=== PATIENT | female | born 2000 | race Caucasian/White ===

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

== ENCOUNTER 2019-05-28 18:12 | Emergency (ER) | payer MEDICAID ==
[~2019-05-28] VITALS: Ht 167.6 cm; Wt 66.2 kg
[2019-05-28 18:13] VITALS: BP 123/86
--- NOTE | 2019-05-28 18:24 | NUR ---
WAIT AT LOBBY
--- NOTE | 2019-05-28 18:41 | NUR ---
PT AMBULATED TO ER BED 10
--- NOTE | 2019-05-28 19:10 | NUR ---
19/F PRESENTED TO ED C/O FEVER , HEADACHE , BODY ACHE X 2 DAYS. PAIN 5/10 INTERMITENT. DENIES DYSURIA. DENIES N/V. REPORTS DIARRHEA. HYPERACTIVE BOWEL SOUNDS HEARD. ABD SOFT NON TENDER. CLEAR BILAT LUNG SOUNDS. EVEN UNLABORED BREATHING. ABLE TO MAKE NEEDS KNOWN. WILL CONTINUE TO MONITOR. BOYFRIEND AT BEDSIDE. MED HX: GAVE 05/18/19
[2019-05-28] MEDS ORDERED: IBUPROFEN 400 MG TAB PO ONE (19:15)
[2019-05-28] MEDS ORDERED: ACETAMINOPHEN 325 MG TAB PO ONE (19:15)
[2019-05-28 19:30] VITALS: BP 123/86
--- NOTE | 2019-05-28 19:30 | NUR ---
Patient discharged with v/s stable. Written and verbal after care instructions given and explained. Patient alert, oriented and verbalized understanding of instructions. Ambulatory with steady gait. All questions addressed prior to discharge. ID band removed. Patient advised to follow up with PMD. Rx of Motrin 400 mg and Tamiflu given. Patient educated on indication of medication including possible reaction and side effects. Opportunity to ask questions provided and answered.
== END 2019-05-28 19:30 | disposition home or self-care (01) ==
LOC: MED 18:12
DX: J11.1 Influenza due to unidentified influenza virus with other respiratory manifestations (principal)
CPT/HCPCS: 99283

== ENCOUNTER 2019-09-18 10:27 | Emergency (ER) | payer MEDICAID, OTHER ==
[~2019-09-18] VITALS: Ht 167.6 cm; Wt 64.9 kg
[2019-09-18 10:38] VITALS: BP 140/93
--- NOTE | 2019-09-18 10:48 | NUR ---
PT AMB W/O ASST TO ER BED 5
--- NOTE | 2019-09-18 10:53 | NUR ---
19 Y/O FEMALE C/O RT MIDDLE AND RING FINGER PAIN S/P CLOSING HAND IN CAR DOOR LAST NIGHT. 12/19 SHARP PAIN TO MIDDLE AND RING FINGER. +CMS, STATES INCREASED PAIN WITH MOVEMENT. BRUSING/DISCOLORATION NOTED TO FINGERS. MIDDLE FINGER NAIL DISCOLORED. STATES SHE HAS NOT TAKEN ANY MEDS TODAY. SKIN WARM, DRY TO THE TOUCH. SITTING UPRIGHT CALM AND PLEASANT. VSS. LMP 09/15/2019 MEDHX: DENIES ALLERGIES: NIDA
--- NOTE | 2019-09-18 10:55 | NUR ---
PT AMBULATED TO RESTROOM
--- NOTE | 2019-09-18 10:59 | NUR ---
RADIOLOGY AT BEDSIDE
--- NOTE | 2019-09-18 11:48 | NUR ---
DR BRUNSON AT BEDSIDE EXAMINING PT
[2019-09-18] MEDS ORDERED: ACETAMINOPHEN 325 MG TAB PO ONE (11:55)
--- NOTE | 2019-09-18 11:57 | NUR ---
SITTING UPRIGHT IN BED AWAKE AND ALERT. STATES SLIGHT PAIN. X 1 SIDE RAIL RAISED. VSS WILL CONTINUE TO MONITOR
--- NOTE | 2019-09-18 12:07 | NUR ---
applied finger splint to right 3rd and 4th digits
--- NOTE | 2019-09-18 12:08 | NUR ---
FINGER SPLINT APPLIED TO 3RD AND 4TH DIGIT, CAP REFILL <2 SECS AFTER APPLICATION. SKIN WARM, DRY TO THE TOUCH
--- NOTE | 2019-09-18 12:40 | NUR ---
PT STATES DECREASE IN PAIN, 1/10 AT THIS TIME.
[2019-09-18 12:41] VITALS: BP 140/93
== END 2019-09-18 12:41 | disposition home or self-care (01) ==
LOC: MED 10:27
DX: S67.192A Crushing injury of right middle finger, initial encounter (principal); S67.194A Crushing injury of right ring finger, initial encounter; W23.0XXA Caught, crushed, jammed, or pinched between moving objects, initial encounter; Y93.89 Activity, other specified; Y92.89 Other specified places as the place of occurrence of the external cause; Y99.8 Other external cause status
CPT/HCPCS: 29130; 73130; 81025; 99283; Q0092